=== PATIENT | female | born 2000 | race Hispanic/Latino ===

== ENCOUNTER → 2024-12-01 | Outpatient (CLI) | payer BC ==
[~2024-12-01] VITALS: Ht 165.1 cm; Wt 96.2 kg
[~2024-12-01] MED LIST: FOLI1 PO; NORE0.3548 PO; VIT D PO
[2024-12-01 10:19] LABS: BASOPHILS # (AUTO) 0.03 K/uL (0.00-0.20); BASOPHILS % (AUTO) 0.5 % (0.0-5.0); EOSINOPHILS # (AUTO) 0.12 K/uL (0.00-0.70); EOSINOPHILS % (AUTO) 1.8 % (0.0-8.0); HEMATOCRIT 43.1 % (36-48); IMMATURE GRANULOCYTE ABSOLUTE 0.02 K/uL (0-1); LYMPHOCYTES # (AUTO) 2.3 K/uL (1.0-4.8); LYMPHOCYTES % (AUTO) 36.1 % (21.0-51.0); MEAN CORPUSCULAR HEMOGLOBIN 29.5 pg (27.0-33.0); MEAN CORPUSCULAR HGB CONC 33.6 g/dL (32.0-36.0); MEAN CORPUSCULAR VOLUME 87.8 fL (79-99); MONOCYTES # (AUTO) 0.5 K/uL (0.1-1.0); MONOCYTES % (AUTO) 7.9 % (3.0-13.0); NEUTROPHILS # (AUTO) 3.5 K/uL (1.8-7.7); NEUTROPHILS % (AUTO) 53.4 % (40.0-77.0); PLATELET COUNT (AUTO) 224 K/uL (130-400); RED BLOOD CELL COUNT(AUTO) 4.91 MIL/uL (4.00-5.50); RED CELL DISTRIBUTION WIDTH 11.8 % (11.0-15.5); WHITE BLOOD COUNT (AUTO) 6.5 K/uL (4.8-10.8)
[2024-12-01 10:29] LABS: CREATININE 0.8 mg/dL (0.5-1.0); INR 1.05 (0.85-1.15); POTASSIUM 3.6 mmol/L (3.5-5.1); PROTHROMBIN TIME 11.7 SEC (9.6-11.6)
[2024-12-01 10:30] LABS: PARTIAL THROMBOPLASTIN TIME 29.9 SEC (26.3-35.5)
--- NOTE | 2024-12-01 10:34 | EKG ---
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
[2024-12-01 10:45] VITALS: BP 119/65; PULSE 78; RESP 14; TEMP 98.1
== END ==
LOC: DAH 09:06 → EDSTATUS 11:00
PROVIDERS: ATTEND Surgery
DX: Z01.818 Encounter for other preprocedural examination (principal); F41.9 Anxiety disorder, unspecified; F32.A Depression, unspecified; E78.5 Hyperlipidemia, unspecified; Z79.01 Long term (current) use of anticoagulants; Z98.890 Other specified postprocedural states
CPT/HCPCS: 80048; 84703; 85025; 85610; 85730; 86850; 86900; 86901; 36415; 93005; A6260

== ENCOUNTER 2025-05-26 02:24 | Observation (INO) | payer BC ==
[~2025-05-26] VITALS: Ht 165.1 cm; Wt 75.7 kg
[2025-05-26] VITALS (25 sets, daily range): BP systolic 103–139; BP diastolic 62–85; PULSE 71–107; RESP 15–19; TEMP 97.6–98.6
[2025-05-26] MEDS: LACTATED RINGERS 1000ML 1,000 ML IV SCH (03:06)
--- NOTE | 2025-05-26 03:17 | ERN ---
General Chief Complaint: Abdominal Pain Stated Complaint: C/O LOWER ABD PAIN W/BACK PAIN, N X V Time Seen by MD: 03:11 Source: patient History of Present Illness Initial Comments Patient healthy 25-year-old female a 6 months status post gastric sleeve surgery comes in with excruciating right lower quadrant pain. The pain starts in her right lower quadrant and then migrates a little bit around to her back. No fevers but positive chills. After the pain started patient they started to have nausea and vomiting. She states that she is urinating okay. Timing/Duration: 1-3 hours Severity: severe Allergies: Coded Allergies: No Known Drug Allergies (Unverified Allergy, Unknown, 12/01/24) Home Meds Reported Medications [Vit D] No Conflict Check, 1.25 MG PO WEEKLY 12/01/24 Folic Acid (Folvite) 1 Mg Tab, 1 MG PO DAILY, TAB 12/01/24 Norethindrone (Helen) 0.35 Mg Tablet, 0.35 MG PO DAILY, TAB 12/01/24 Past Medical History Past Medical History: No Pertinent History Past Surgical History: Other Surgical History Other: GASTRIC SLEEVE (01/05) Female( History) LMP: Apr 27, 2025 Constitutional: (+) chills EENTM: (-) eye pain, (-) blurred vision, (-) tearing, (-) double vision, (-) ear pain, (-) ear discharge, (-) nose pain, (-) nose congestion, (-) throat pain, (-) Throat swelling, (-) mouth pain, (-) tooth pain, (-) mouth swelling, (-) other documentation Respiratory: (-) cough, (-) orthopnea, (-) short of breath, (-) stridor, (-) wheezing, (-) other documentation Cardiovascular: (-) chest pain, (-) edema, (-) palpitations, (-) syncope, (-) dyspnea on exertion, (-) other documentation Gastrointestinal/Abdominal: (+) nausea, (+) vomiting, (+) abdominal pain Genitourinary: (-) vaginal discharge, (-) vaginal bleeding, (-) dysuria, (-) frequency, (-) hematuria, (-) pain, (-) other documentation Musculoskeletal: (-) Neck pain, (-) back pain, (-) Flank Pain, (-) joint pain, (-) joint swelling, (-) muscle pain, (-) muscle stiffness, (-) gout, (-) other documentation Skin: (-) laceration, (-) contusion, (-) abrasion, (-) abscess, (-) rash, (-) change in color, (-) change in hair, (-) change in nails, (-) diaphoresis, (-) dryness, (-) other documentation Neuro: (-) altered mental status, (-) headache, (-) syncope, (-) paralysis, (-) numbness, (-) seizure, (-) pre-existing deficit, (-) tremors, (-) weakness, (-) dizziness, (-) slurred speech, (-) vertigo, (-) other documentation Physical Exam General Appearance: (+) moderate distress Orientation: (+) alert, (+) oriented x 3 Head/Face Trauma: No Eye: bilateral eye normal inspection, bilateral eye PERRL, bilateral eye EOMI Ear, Nose, Throat: (+) hearing grossly normal, (+) normal ENT inspection Neck: (+) normal inspection, (+) supple, (+) full range of motion Respiratory: (+) chest non-tender, (+) lungs clear, (+) well ventilated Heart: (+) regular, (+) no gallop, (+) murmur Vascular: (+) no edema, (+) normal peripheral pulse, (+) no JVD Gastrointestinal: (+) soft, (+) tender, (+) bowel sound absent, (+) rebound, (+) guarding, (+) McBerney's Results Laboratory and Microbiology Lab and Micro Result Laboratory Tests Test 05/26/25 02:36 05/26/25 02:57 Urine Color YELLOW (YELLOW) Urine Appearance CLEAR (CLEAR) Urine pH 5.5 (5.0-8.0) Urine Specific [place] 1.041 (1.001-1.031) Urine Protein 20 mg/dL (NEGATIVE) H Urine Glucose (UA) NEGATIVE mg/dL (NEGATIVE) Urine Ketones 100 mg/dL (NEGATIVE) H Urine Occult Blood NEGATIVE (NEGATIVE) Urine Nitrate NEGATIVE (NEGATIVE) Urine Bilirubin NEGATIVE mg/dL (NEGATIVE) Urine Urobilinogen 2.0 mg/dL (0.2-1.0) H Urine Leukocyte Esterase 75 Mason/uL (NEGATIVE) H Urine RBC 2-5 /HPF (0-1) H Urine WBC 2-5 /HPF (0-1) H Urine Squamous Epithelial Cells FEW /HPF (0-2) Urine Bacteria RARE /HPF (None Seen) Urine HCG, Qualitative NEGATIVE (NEGATIVE) White Blood Count 18.1 K/uL (4.8-10.8) H Red Blood Count 4.64 MIL/uL (4.00-5.50) Hemoglobin 13.8 g/dL (12.0-16.0) Hematocrit 40.6 % (36-48) Mean Corpuscular Volume 87.5 fL (79-99) Mean Corpuscular Hemoglobin 29.7 pg (27.0-33.0) Mean Corpuscular Hemoglobin Concent 34.0 g/dL (32.0-36.0) Red Cell Distribution Width 11.8 % (11.0-15.5) Platelet Count 243 K/uL (130-400) Mean Platelet Volume 11.4 fL (7.5-10.5) H Immature Granulocyte % (Auto) 0.4 % (0-1) Neutrophils (%) (Auto) 79.9 % (40.0-77.0) H Lymphocytes (%) (Auto) 15.2 % (21.0-51.0) L Monocytes (%) (Auto) 4.1 % (3.0-13.0) Eosinophils (%) (Auto) 0.2 % (0.0-8.0) Basophils (%) (Auto) 0.2 % (0.0-5.0) Neutrophils # (Auto) 14.5 K/uL (1.8-7.7) H Lymphocytes # (Auto) 2.8 K/uL (1.0-4.8) Monocytes # (Auto) 0.8 K/uL (0.1-1.0) Eosinophils # (Auto) 0.03 K/uL (0.00-0.70) Basophils # (Auto) 0.04 K/uL (0.00-0.20) Absolute Immature Granulocyte (auto 0.07 K/uL (0-1) Nucleated Red Blood Cells 0.0 % (0.0-0.19) Sodium Level 138 mmol/L (136-145) Potassium Level 3.4 mmol/L (3.5-5.1) L Chloride Level 102 mmol/L (101-111) Carbon Dioxide Level 25 mmol/L (21-32) Blood Urea Nitrogen 15 mg/dL (7-18) Creatinine 0.8 mg/dL (0.5-1.0) Glomerular Filtration Rate Calc 104 mL/min (>90) Random Glucose 150 mg/dL (70-105) H Total Calcium 9.2 mg/dL (8.5-10.1) MDM MDM: Differential diagnosis: Appendicitis, nephrolithiasis, small-bowel obstruction, ovarian cyst, intra-abdominal catastrophe, her pain is much more severe than what I would expect for dehydration. Rationale: Tests considered and ordered secondary to shared decision making include: Previous outside records reviewed: Old ER visits. Risk of complication and/or morbidity or mortality of patient management: None Medications-Per medication reconciliation Need for hospitalization: Patient does meet criteria for hospitalization. Need for emergency major/minor surgery: No There are no social concerns with this patient. Prescription drug management Prescriptions will include symptomatic care Patient's prior external medical records from other ER visits were reviewed by me as indicated. Prior testing and results from previous visits were reviewed. Prior tests were taken into account with medical decision making and resource utilization, independent historian/historians were used to obtain complete medical history. I independently interpreted the test that were performed, results were reviewed by me and considered findings on radiology if ordered. CT scans positive for appendicitis. In addition the patient has gastroenteritis and a large right ovarian cyst. I discussed the case with Dr. Wallace and we will admit the patient to the hospital. ED Course Orders Procedure Category Date Status Time Urinalysis Profile LAB 05/26/25 Complete 02:45 ,Urine Test LAB 05/26/25 Complete 02:45 Cbc With Differential LAB 05/26/25 Complete 02:49 Basic Metabolic Panel LAB 05/26/25 Complete 02:49 Ondansetron 4mg Inj PHA 05/26/25 Complete (Zofran 4mg Inj) 03:00 Lactated Ringers PHA 05/26/25 In Process 1000ml (Lactated 03:00 Morphine 2mg Syg PHA 05/26/25 Complete (Morphine 2mg Syg) 03:30 Ct Abdomen/Pelvis CT 05/26/25 Resulted W/Wo Contras 03:12 Culture Urine LIVIA 05/26/25 In Process 03:36 Iohexol (Omnipaque) PHA 05/26/25 Complete 04:07 Morphine 4mg Syg PHA 05/26/25 Complete (Morphine 4mg Syg) 04:30 Lactated Ringers PHA 05/26/25 Complete 1000ml (Lactated 04:41 Current Medications Medications (Trade) Dose Ordered Sig/Davin Route PRN Reason Start Time Stop Time Status Last Admin Dose Admin Iohexol (Omnipaque) 35,000 mg STK-MED ONCE IV 05/26/25 04:07 05/26/25 04:08 DC Lactated Ringer's 1,000 ml @ 0 mls/hr Q0M IV 05/26/25 03:00 06/25/25 02:59 05/26/25 03:06 Lactated Ringer's (Lactated Ringers 1000ml) 1,000 ml BOLUS STAT IV 05/26/25 04:41 05/26/25 04:46 DC 05/26/25 05:11 Morphine Sulfate (morPHINE 2MG SYG) 2 mg ONCE ONCE IVP 05/26/25 03:30 05/26/25 03:31 DC 05/26/25 03:40 Morphine Sulfate (morPHINE 4MG SYG) 4 mg ONCE ONCE IVP 05/26/25 04:30 05/26/25 04:31 DC 05/26/25 05:12 Ondansetron HCl (zoFRAN 4MG INJ) 4 mg ONCE ONCE IVP 05/26/25 03:00 05/26/25 03:01 DC 05/26/25 03:06 Vital Signs Date Time Temp Pulse Resp B/P (MAP) Pulse Ox O2 Delivery O2 Flow Rate FiO2 05/26/25 05:22 98.2 96 18 98/70 99 Room Air* 0 21 05/26/25 03:14 68 18 14/59 98 Room Air* 0 21 05/26/25 02:27 97.2 84 20 98/57 100 Room Air DX & DISP Disposition: Inpatient Departure Impression: Primary Impression: Appendicitis, acute Additional Impressions: Gastroenteritis, Right ovarian cyst Condition: Stable Referrals: NORMAN PHILLIPS NP (PCP) PAN VILLATORO MD May 26, 2025 03:17
[2025-05-26 03:20] LABS: APPEARANCE,URINE CLEAR (CLEAR); GLUCOSE, URINE (UA) NEGATIVE (NEGATIVE); LEUKOCYTE ESTERASE ,URINE 75 Leu/uL (NEGATIVE); NITRATE,URINE NEGATIVE (NEGATIVE); OCCULT BLOOD,URINE NEGATIVE (NEGATIVE)
[2025-05-26 03:25] LABS: CREATININE 0.8 mg/dL (0.5-1.0); GLOMERULAR FILTR. RATE CALC 104.0 mL/min (>90); GLUCOSE,RANDOM 150.0 mg/dL (70-105); SODIUM SERUM 138.0 mmol/L (136-145); UREA NITROGEN, BLOOD 15.0 mg/dL (7-18)
[2025-05-26 03:27] LABS: IMMATURE GRANULOCYTE ABSOLUTE 0.07 K/uL (0-1); NUCLEATED RED BLOOD CELLS 0.0 % (0.0-0.19); PLATELET COUNT (AUTO) 243 K/uL (130-400); RED BLOOD CELL COUNT(AUTO) 4.64 MIL/uL (4.00-5.50); RED CELL DISTRIBUTION WIDTH 11.8 % (11.0-15.5); WHITE BLOOD COUNT (AUTO) 18.1 K/uL (4.8-10.8)
[2025-05-26 03:36] LABS: ADD UA MICROSCOPIC YES
[2025-05-26 03:38] LABS: SQUAMOUS EPITHELIAL CELL,UR FEW /HPF (0-2)
[2025-05-26] MEDS ORDERED: IOHEXOL 350 MG/ML 100ML INFUS..BTL IV ONE (04:07)
--- NOTE | 2025-05-26 04:14 | NUR ---
pATIENT AT CT SCAN AT THIS TIME.
[2025-05-26] MEDS: LACTATED RINGERS 1000ML IV STA (05:11)
--- NOTE | 2025-05-26 05:19 | HMCIMG ---
EXAM: CT Abdomen and Pelvis without and with IV contrast CLINICAL HISTORY: Right lower quadrant abdominal pain. TECHNIQUE: Pre and post-contrast thin collimated axial CT images of the abdomen and pelvis were obtained, with sagittal and coronal reformatted images also submitted. CT scan is done according to ALARA (As Low As Reasonably Achievable). COMPARISON: None. FINDINGS: The included lungs are clear. No focal abnormality within the liver, gallbladder, pancreas, spleen, adrenals, or kidneys. The urinary bladder is suboptimally distended with questionable mild cystitis. There is a 3.5 x 4.0 x 4.0 cm right ovarian cyst with a mildly enhancing wall in its medial aspect. Unremarkable uterus and left ovary. Questionable mild diffuse mucosal thickening in the small and large bowel loops, concerning mild acute enterocolitis. Status post gastric sleeve. Mildly thickened appendix measures up to 1 cm in diameter with mucosal hyperenhancement, concerning mild acute appendicitis. Grossly unremarkable abdominal vessels. No pathological lymphadenopathy in the abdomen or pelvis. No ascites or pneumoperitoneum. No acute bony abnormality is evident. Degenerative osseous changes. IMPRESSIONS: Acute appendicitis. Acute enterocolitis. Right ovarian cyst. The urinary bladder is suboptimally distended with questionable mild cystitis. /[place]
[2025-05-26] MEDS: DEXTROSE 5%-LACTATED RINGERS 1,000 ML IV SCH (05:50)
[2025-05-26] MEDS ORDERED: MAGNESIUM 2GM PREMIX 50ML 50 ML IV PRN (07:30)
[2025-05-26] MEDS ORDERED: PoTASSium chloRIDE 20MEQ ER 20 MEQ ERTAB PO PRN (07:30)
[2025-05-26 08:00] LABS: INR 1.05 (0.85-1.15)
[2025-05-26 08:05] LABS: ASPARTATE AMINOTRANSFERASE 15.0 U/L (10-37); TOTAL PROTEIN, SERUM 6.7 g/dL (6.0-8.3)
[2025-05-26 08:28] LABS: PHOSPHORUS 3.5 mg/dL (2.5-4.9)
--- NOTE | 2025-05-26 09:20 | HP ---
[facility]ORY [facility] PHYS[facility] Date of Service: May 26, 2025 Time of Service: 08:44 HISTORY OF PRESENT ILLNESS: The patient is a 25 year old previously healthy female, 6 months status post gastric sleeve surgery, with past medical history of ADHD came to the ED with chief complaint of excruciating right lower quadrant abdominal pain that began approximately 1-3 hours before presentation to the emergency department and has since radiated slightly towards her back. Pain is aggravated by sudden movement and relieved by lying on bed. She reports associated chills,nausea and 3 episodes of vomiting at home She has no complaints of fever, dysuria, urinary frequency,diarrhea,constipation. Patient had the last bowel movement on saturday. On presentation to the ED,patient vitals are temperature-97.2,pulse-96,respiratory rate-18,b.p-98/70, saturating at 99%on room air. Laboratory evaluation revealed leukocytosis with a wbc count of 18.1, low P- 1.70,high CRP-13.1, low K-3.4. urinalysis revealed mild acute cystitis. Patient is currently on [id number], [id number], dextrose-1000ml@125ml/hr-q8h. Patient received 30ml/kg IVfluid according to sepsis protocol. CT scan of the abdomen and pelvis revealed 1. Acute appendicitis 2.Acute enterocolitis 3.Right simple ovarian cyst-3.5x4x4 4.Mild cystitis Patient admitted for the diagnosis of acute appendicitis.Patient will be monitored closely under hospitalist service. REVIEW OF SYSTEMS CONSTITUTIONAL: Admit to chills, Denies fevers, or night sweats. CARDIOVASCULAR: Denies any exertional angina, dyspnea on exertion. PULMONARY: Denies any shortness of breath, cough. SLEEP: Denies morning headaches, daytime somnolence or napping. Denies difficulty falling asleep, staying asleep, waking from sleep. GASTROINTESTINAL: Admits to lower abdominal pain with back pain Denies any type of dysphagia to either liquids or solids. Patient has nausea, vomiting. Denies pyrosis, early satiety, abdominal pain, diarrhea, constipation, or changes in stool consistency or caliber. Denies coffee-ground emesis, hematemesis, hematochezia, or melanotic stools. GENITOURINARY: Denies frequency, urgency, nocturia, hematuria or incontinence (Storage/Irritative symptoms.) Low urinary stream, straining to void, urinary intermittency or hesitancy, splitting of the voiding stream, terminal dribbling. DERMATOLOGIC: Denies rashes or pruritus. PSYCHIATRIC: Admits of ADHD, Denies any suicidal or homicidal ideation. Denies hallucinations. PAST MEDICAL HISTORY: - Past Medical History is significant for Migraine PAST SURGICAL HISTORY: - Gastric sleeve surgery performed 6 months ago PAST SOCIAL HISTORY: -Denies smoking. Drinks alcohol occasionally, last time she had in the month of february. FAMILY HISTORY: - Denies any pertinent family history Coded Allergies: No Known Drug Allergies (Unverified Allergy, Unknown, 12/01/24) PHYSICAL EXAM GENERAL APPEARANCE: The patient is awake, alert, and oriented, Patient appears to be in moderate distress. HEENT: Face is symmetric. Pupils are equal and reactive. Extraocular movements are intact. NECK: Supple. No JVD. No thyromegaly. No submental, submandibular, pre- /postauricular, occipital or supraclavicular lymphadenopathy. CHEST: Normal chest expansion. No Telemetry. LUNGS: Absence of any rales, rhonchi or any wheezing. CARDIOVASCULAR: Regular. S1 and S2 normal. ABDOMEN: Soft, tender,bowel sounds absent,rebound, guarding and Mcburney point tenderness is present EXTREMITIES: Non-edematous and not cyanotic. No clubbing. Good capillary refill. SKIN: No skin breakdown. Vital Sign (Last 24 Hours) 05/26/25 06:40 Temp 98.4 Pulse 105 Resp 18 B/P (MAP) 105/65 Pulse Ox 98 O2 Delivery Room Air* O2 Flow Rate 0 FiO2 21 LABS: Laboratory: Test 05/26/25 07:40 05/26/25 02:57 05/26/25 02:36 Range/Units Prothrombin Time 11.1 9.6-11.6 SEC Prothromb Time International Ratio 1.05 0.85-1.15 Activated Partial Thromboplast Time 27.1 26.3-35.5 SEC Hemoglobin A1c 5.3 4.0-6.0 % Estimated Average Glucose (eAG) 105 70-126 mg/dL Lactic Acid Level 1.6 0.8-2.5 mmol/L Phosphorus Level 3.5 2.5-4.9 mg/dL Magnesium Level 1.70 L 1.80-2.40 mg/dL Total Bilirubin 0.8 0.2-1.0 mg/dL Direct Bilirubin 0.2 0.0-0.3 mg/dL Aspartate Amino Transf (AST/SGOT) 15 10-37 U/L Alanine Aminotransferase (ALT/SGPT) 29 12-78 U/L Alkaline Phosphatase 51 50-136 U/L C-Reactive Protein, Quantitative 13.10 H 0.5-3.0 mg/L Total Protein 6.7 6.0-8.3 g/dL Albumin 3.5 3.5-5.0 g/dL Lipase 19 16-77 U/L Procalcitonin < 0.05 L 0.05-0.5 ng/mL Thyroid Stimulating Hormone (TSH) 1.07 0.36-3.74 uIU/mL White Blood Count 18.1 H 4.8-10.8 K/uL Red Blood Count 4.64 4.00-5.50 MIL/uL Hemoglobin 13.8 12.0-16.0 g/dL Hematocrit 40.6 36-48 % Mean Corpuscular Volume 87.5 79-99 fL Mean Corpuscular Hemoglobin 29.7 27.0-33.0 pg Mean Corpuscular Hemoglobin Concent 34.0 32.0-36.0 g/dL Red Cell Distribution Width 11.8 11.0-15.5 % Platelet Count 243 130-400 K/uL Mean Platelet Volume 11.4 H 7.5-10.5 fL Immature Granulocyte % (Auto) 0.4 0-1 % Neutrophils (%) (Auto) 79.9 H 40.0-77.0 % Lymphocytes (%) (Auto) 15.2 L 21.0-51.0 % Monocytes (%) (Auto) 4.1 3.0-13.0 % Eosinophils (%) (Auto) 0.2 0.0-8.0 % Basophils (%) (Auto) 0.2 0.0-5.0 % Neutrophils # (Auto) 14.5 H 1.8-7.7 K/uL Lymphocytes # (Auto) 2.8 1.0-4.8 K/uL Monocytes # (Auto) 0.8 0.1-1.0 K/uL Eosinophils # (Auto) 0.03 0.00-0.70 K/uL Basophils # (Auto) 0.04 0.00-0.20 K/uL Absolute Immature Granulocyte (auto 0.07 0-1 K/uL Nucleated Red Blood Cells 0.0 0.0-0.19 % Sodium Level 138 136-145 mmol/L Potassium Level 3.4 L 3.5-5.1 mmol/L Chloride Level 102 101-111 mmol/L Carbon Dioxide Level 25 21-32 mmol/L Blood Urea Nitrogen 15 7-18 mg/dL Creatinine 0.8 0.5-1.0 mg/dL Glomerular Filtration Rate Calc 104 >90 mL/min Random Glucose 150 H 70-105 mg/dL Total Calcium 9.2 8.5-10.1 mg/dL Urine Color YELLOW YELLOW Urine Appearance CLEAR CLEAR Urine pH 5.5 5.0-8.0 Urine Specific [place] 1.041 H 1.001-1.031 Urine Protein 20 H NEGATIVE mg/dL Urine Glucose (UA) NEGATIVE NEGATIVE mg/dL Urine Ketones 100 H NEGATIVE mg/dL Urine Occult Blood NEGATIVE NEGATIVE Urine Nitrate NEGATIVE NEGATIVE Urine Bilirubin NEGATIVE NEGATIVE mg/dL Urine Urobilinogen 2.0 H 0.2-1.0 mg/dL Urine Leukocyte Esterase 75 H NEGATIVE Mason/uL Urine RBC 2-5 H 0-1 /HPF Urine WBC 2-5 H 0-1 /HPF Urine Squamous Epithelial Cells FEW 0-2 /HPF Urine Bacteria RARE None Seen /HPF Urine HCG, Qualitative NEGATIVE NEGATIVE Current Medications Medications (Trade) Dose Ordered Sig/Davin Route PRN Reason Start Time Stop Time Status Last Admin Dose Admin Acetaminophen (TYLenol 325MG TAB) 650 mg Q4H PRN PO TEMPERATURE GREATER THAN 101.5 05/26/25 07:30 06/25/25 07:29 Cefepime HCl (MAXipime 1 GM vial) 1 gm Q12H STAT IVPB 05/26/25 05:32 05/26/25 05:38 DC 05/26/25 05:50 1 GM Ceftriaxone Sodium (ROCEphine 1G INJ) 1 gm Q24H IVPB 05/26/25 07:30 06/05/25 07:29 05/26/25 07:44 1 GM Dextrose/Lactated Ringer's 1,000 ml @ 125 mls/hr Q8H IV 05/26/25 06:00 06/25/25 05:59 05/26/25 05:50 125 MLS/HR Hydromorphone HCl (DiLAUDid 0.5MG INJ) 0.5 mg Q6H PRN IVP SEVERE PAIN (7-10) 05/26/25 07:30 05/31/25 07:29 Lactated Ringer's 1,000 ml @ 0 mls/hr Q0M IV 05/26/25 03:00 06/25/25 02:59 05/26/25 03:06 2,000 MLS/HR Lactated Ringer's (Lactated Ringers 1000ml) 1,000 ml BOLUS STAT IV 05/26/25 04:41 05/26/25 04:46 DC 05/26/25 05:11 1,000 ML Magnesium Sulfate 50 ml @ 0 mls/hr PROTOCOL PRN IV MAGNESIUM PROTOCOL 05/26/25 07:30 06/25/25 07:29 Metronidazole/ Sodium Chloride 100 ml @ 100 mls/hr Q8H6 IVPB 05/26/25 14:00 06/05/25 13:59 Metronidazole/ Sodium Chloride 100 ml @ 100 mls/hr Q8H6 STAT IVPB 05/26/25 05:32 05/26/25 06:32 DC 05/26/25 06:30 100 MLS/HR Morphine Sulfate (morPHINE 2MG SYG) 1 mg Q4H PRN IVP MODERATE PAIN (4-6) 05/26/25 07:30 06/02/25 07:29 Ondansetron HCl (zoFRAN 4MG INJ) 4 mg Q6H PRN IVP NAUSEA/VOMITING 05/26/25 07:30 06/25/25 07:29 Pantoprazole Sodium (PROTonix 40MG INJ) 40 mg DAILY IVP 05/26/25 09:00 06/25/25 08:59 Potassium Chloride 100 ml @ 50 mls/hr AD PRN IV POTASSIUM PROTOCOL 05/26/25 07:30 06/25/25 07:29 Potassium Chloride 100 ml @ 100 mls/hr AD PRN IV POTASSIUM PROTOCOL 05/26/25 07:30 05/26/25 07:15 DC Potassium Chloride (K-Dur/Klor-Con 20meq) 20 meq AD PRN PO POTASSIUM PROTOCOL 05/26/25 07:30 06/25/25 07:29 Potassium Chloride (KCl 10% Elixir 20meq/15ml) 20 meq AD PRN PO POTASSIUM PROTOCOL 05/26/25 07:30 06/25/25 07:29 DIAGNOSTICS / RADIOLOGY: [facility] [place] [address] [place] [address] IMAGING REPORT Signed PATIENT: SHUN LARA MR#: [id number] : 2000 SEX: F AGE: 25 LOCATION: [facility] ORDER 3 STATUS: REG ER REPORT#: [id number] SERVICE 1 REASON: RLQ pain ORDERING PHYSICIAN: PAN VILLATORO MD PROCEDURE: ABD PELWWO - CT ABDOMEN/PELVIS W/WO CONTRAS EXAM: CT Abdomen and Pelvis without and with IV contrast CLINICAL HISTORY: Right lower quadrant abdominal pain. TECHNIQUE: Pre and post-contrast thin collimated axial CT images of the abdomen and pelvis were obtained, with sagittal and coronal reformatted images also submitted. CT scan is done according to ALARA (As Low As Reasonably Achievable). COMPARISON: None. FINDINGS: The included lungs are clear. No focal abnormality within the liver, gallbladder, pancreas, spleen, adrenals, or kidneys. The urinary bladder is suboptimally distended with questionable mild cystitis. There is a 3.5 x 4.0 x 4.0 cm right ovarian cyst with a mildly enhancing wall in its medial aspect. Unremarkable uterus and left ovary. Questionable mild diffuse mucosal thickening in the small and large bowel loops, concerning mild acute enterocolitis. Status post gastric sleeve. Mildly thickened appendix measures up to 1 cm in diameter with mucosal hyperenhancement, concerning mild acute appendicitis. Grossly unremarkable abdominal vessels. No pathological lymphadenopathy in the abdomen or pelvis. No ascites or pneumoperitoneum. No acute bony abnormality is evident. Degenerative osseous changes. IMPRESSIONS: Acute appendicitis. Acute enterocolitis. Right ovarian cyst. The urinary bladder is suboptimally distended with questionable mild cystitis. /[place] DICTATED BY: DERICK LEES Jr., MD DATE: 05/26/25618 ELECTRONICALLY SIGNED BY: DERICK LEES Jr., MD DATE: 05/26/25 0619 ASSESSMENT: 1. Acute Appendicitis 2. Enterocolitis 3. Acute mild Cystitis 4.Right Simple Ovarian Cyst- Measuring 3.5 x4.0 x4.0 cm ovarian cyst 5. Sepsis 6. Possible SBO PLAN: 1. Acute Appendicitis -Monitoring the patient vitals closely. - provided pain medications and antiemetics as PRN- Ondansetron 4mg and morphine 4mg - patient is on NPO. -Surgical consultation placed 2.Enterocolitis: - Fluid resuscitation with lactate ringers - Necessary electrolyte correction -Bowel rest - Stool studies to suspect infectious cause -Started empiric antibiotics like metronidazole-100ml -Acetaminophen for fever and pain. 3.Acute mild cystitis: -ceftriaxone-1gm IV daily -Adjust antibiotics as per urine culture/sensitivity results 4.Right simple ovarian cyst: -Here the cyst is<5cm and asymptomatic- Follow up care is required. 5.Sepsis: - Dextrose/lactated ringers-1000ml@125ml/hr -Prescribed broad spectrum antibiotics ceftriaxone 1mg 6. Possible Small Bowel Obstruction: -NPO -Ondansetron 4mg for vomiting -Morphine 3 mg for pain control ATTESTATION BY PHYSICIAN I have seen and examined the patient. I reviewed the documentation, medical decision making, and treatment plan as noted by the mid-level provider above. I agree with the findings and plan of care. Akhil Mccormack MD, HARSHA MD May 26, 2025 09:20
--- NOTE | 2025-05-26 09:42 | NUR ---
DCP:HOME Pt currently lives at home with her mom Noris Loya [phone]. Pt does not have any DME, home health, or provider services. Pt states that she is able to complete ADLs independently. PCP is Susy Haley and uses [facility] for any RX needs. At DC pt will want to go home and family can assist with transportation. Addendum: 05/26/25 at 0944 by LUIS ENRIQUE LILLY SS Amended: Links added.
[2025-05-26] MEDS ORDERED: ATOM10CA PO (10:01)
--- NOTE | 2025-05-26 10:47 | CONS ---
CONSULT NOTE: Consulting physician:Dr Mccormack Consulting service: General surgery Reason for consultation: Acute appendicitis History of present illness: This is a 25-year-old female with no significant medical history that has been consulted to surgery after presenting to the hospital with concerns of abdominal discomfort. Initially patient thought it was potentially menstrual cramps but due to worsening symptoms patient presented to the hospital for further evaluation. Upon admission imaging performed concerning for potential appendicitis with in her colitis and right ovarian cyst measuring 4 x 4 x 3.5 cm . Patient also with concerns of cystitis noted. Patient with a elevated white count. Patient currently on IV fluids and IV antibiotics. On physical exam patient with rebound tenderness and right lower quadrant discomfort. Patient currently NPO in preparation for possible surgery Medical history: Surgical history: Gastric sleeve in December of 2024 Review of systems: General: No Fever, No Chills, No Night Sweats, No Fatigue, No Malaise, No Appetite, No Other HEENT: No Head Aches, No Visual Changes, No Eye Pain, No Ear Pain, No Dysphasia, No Sinus Congestion, No Post Nasal Drip, No Sore Throat, No Other Pulmonary: No Dyspnea, No Cough, No Pleuritic Chest Pain, No Other Cardiovascular: No: Chest Pain, Palpitations, Orthopnea, Paroxysmal No Dyspnea, Edema, Lt Headedness, Other Gastrointestinal: No: Nausea, Vomiting, Diarrhea, Constipation, Melena, Hematochezia, Other Genitourinary: No Dysuria, No Frequency, No Incontinence, No Hematuria, No Retention, No Other Musculoskeletal: No: other, neck pain, shoulder pain, arm pain, back pain, hand pain, leg pain, foot pain Skin: No Urticaria, No Rash, No Other Neurological: No: Weakness, Numbness, Incoordination, Change in speech, Confusion, Seizures, Other Physical exam: General: Awake alert and oriented Heart: Regular rate and rhythm} Lungs: [Clear to auscultation no distress Abdomen: Right lower quadrant tenderness with rebound tenderness Assessment: This is a 25-year-old female with concerns acute appendicitis with a ovarian cysts and mild in her colitis and cystitis Plan: At this point in time patient will be scheduled for appendectomy to be performed by Dr. Lanier Patient to remain NPO Patient to continue with the IV fluids and IV antibiotics Patient has a forward with surgical procedure risks and benefits and agrees with surgical intervention at this time Dr. Lanier has been updated on patient's status SERGIO LANDAVERDE Jr. May 26, 2025 10:47
[2025-05-26] MEDS ORDERED: LIDOCAINE PF 100MG/5ML (2%) SYRINGE 5ML ONE (11:31)
[2025-05-26] MEDS: LACTATED RINGERS 1000ML 1,000 ML IV ONE (11:46)
--- NOTE | 2025-05-26 13:53 | OP ---
Operative Note: DATE OF PROCEDURE: 05/26/25 SURGEON: LUIS BLACKMON MD MANAGER MINING: [] ANESTHESIA: [] General ANESTHESIOLOGIST/DATABASE MODELER: [] PREOPERATIVE DIAGNOSIS: [] Acute appendicitis POSTOPERATIVE DIAGNOSIS: [] The same SYNOPSIS: [] PROCEDURE: [] Laparoscopic appendectomy ESTIMATED BLOOD LOSS: [] None INDICATIONS: [] DESCRIPTION OF PROCEDURE: []With the patient prepped and draped in usual fashion supraumbilical incision was done. Using direct technique I was able to place a balloon trocar and abdomen insufflated. Two 5 mm trochars were inserted under direct vision in the lower abdomen. Immediately we identified an inflamed appendix and a window was created in the base and the appendix. Using a laparoscopic 45 mm DENIS white stapler I transected the base of appendix. I used a reload to transect the mesoappendix. The appendix was placed in a bag. After adequate hemostasis and irrigation in the area I remove all the trochars under direct vision and the appendix through the supraumbilical incision. The fascia was closed with the 0 Vicryl [id number]. All incisions were closed with staplers. I placed 20 cc of local. We noticed a right ovarian cysts and pictures were taken. Patient tolerated procedure without complication LUIS BLACKMON MD May 26, 2025 13:53
--- NOTE | 2025-05-26 15:30 | NUR ---
Received patient placed in room 324 ,patient sleeping , abdominal incisions intact.intravenous fluids via pump via pump.
--- NOTE | 2025-05-26 19:39 | HMCIMG ---
EXAM: CR Chest, 1 View. CLINICAL HISTORY: Baseline COMPARISON: None provided. FINDINGS: LUNGS: The lungs show no infiltrate or other acute finding. PLEURAL SPACES: No pleural effusion or pneumothorax. MEDIASTINUM: The cardiomediastinal silhouette is within normal limits. BONES: No acute osseous abnormality. IMPRESSION: No acute cardiopulmonary pathology is evident. /[place]
[2025-05-26] MEDS: SUGAMMADEX SODIUM 200 MG/2 ML VIAL IV ONE (21:46)
[2025-05-26] MEDS: GABAPENTIN 300 MG CAPSULE ONE (21:52)
[2025-05-26] MEDS: FAMOTIDINE 20MG VIAL IV ONE (21:52)
[2025-05-27] VITALS (7 sets, daily range): BP systolic 95–113; BP diastolic 53–71; PULSE 75–86; RESP 16–20; TEMP 97.8–98.6; O2SAT 100
[2025-05-27 06:17] LABS: IMMATURE GRANULOCYTE ABSOLUTE 0.08 K/uL (0-1); NUCLEATED RED BLOOD CELLS 0.0 % (0.0-0.19); PLATELET COUNT (AUTO) 219 K/uL (130-400); RED BLOOD CELL COUNT(AUTO) 4.12 MIL/uL (4.00-5.50); RED CELL DISTRIBUTION WIDTH 11.8 % (11.0-15.5); WHITE BLOOD COUNT (AUTO) 12.4 K/uL (4.8-10.8)
[2025-05-27 07:29] LABS: CREATININE 0.6 mg/dL (0.5-1.0); GLOMERULAR FILTR. RATE CALC 127.0 mL/min (>90); GLUCOSE,RANDOM 113.0 mg/dL (70-105); SODIUM SERUM 141.0 mmol/L (136-145); UREA NITROGEN, BLOOD 8.0 mg/dL (7-18)
[2025-05-27] MEDS: MAGNESIUM 2GM PREMIX 50ML 50 ML IV PRN (15:35)
--- NOTE | 2025-05-27 16:55 | PN ---
[facility] PROGRESS NOTE Date of Service: May 27, 2025 Time of Service: 16:47 SUBJECTIVE: This is a 25-year-old female with no significant medical history that has been consulted to surgery after presenting to the hospital with concerns of abdominal discomfort. Initially patient thought it was potentially menstrual cramps but due to worsening symptoms patient presented to the hospital for further evaluation. Upon admission imaging performed concerning for potential appendicitis with in her colitis and right ovarian cyst measuring 4 x 4 x 3.5 cm. Patient also with concerns of cystitis noted. Patient with a elevated white count. Patient currently on IV fluids and IV antibiotics. On physical exam patient with rebound tenderness and right lower quadrant discomfort. Patient currently NPO in preparation for possible surgery 05/27/2025: Patient underwent appendectomy yesterday on 05/26/2025. Patient was seen at bedside in room 324. Patient states that she has been doing well since her surgery. Patient is alert, awake, and oriented. Her vitals look stable. Patient states that she went for a run in the morning and has not felt any significant pain. She states that she still has some pain from the access site. She has no other active complaints. She is waiting for recommendations from colorectal surgery regarding her possible discharge date. REVIEW OF SYSTEMS CONSTITUTIONAL: Admit to chills, Denies fevers, or night sweats. CARDIOVASCULAR: Denies any exertional angina, dyspnea on exertion. PULMONARY: Denies any shortness of breath, cough. SLEEP: Denies morning headaches, daytime somnolence or napping. Denies difficulty falling asleep, staying asleep, waking from sleep. GASTROINTESTINAL: Admits to lower abdominal pain with back pain Denies any type of dysphagia to either liquids or solids. Patient has nausea, vomiting. Denies pyrosis, early satiety, abdominal pain, diarrhea, constipation, or changes in stool consistency or caliber. Denies coffee-ground emesis, hematemesis, hematochezia, or melanotic stools. GENITOURINARY: Denies frequency, urgency, nocturia, hematuria or incontinence (Storage/Irritative symptoms.) Low urinary stream, straining to void, urinary intermittency or hesitancy, splitting of the voiding stream, terminal dribbling. DERMATOLOGIC: Denies rashes or pruritus. PSYCHIATRIC: Admits of ADHD, Denies any suicidal or homicidal ideation. Denies hallucinations. PHYSICAL EXAM GENERAL APPEARANCE: The patient is awake, alert, and oriented, Patient appears to be in moderate distress. HEENT: Face is symmetric. Pupils are equal and reactive. Extraocular movements are intact. NECK: Supple. No JVD. No thyromegaly. No submental, submandibular, pre-/posta uricular, occipital or supraclavicular lymphadenopathy. CHEST: Normal chest expansion. No Telemetry. LUNGS: Absence of any rales, rhonchi or any wheezing. CARDIOVASCULAR: Regular. S1 and S2 normal. ABDOMEN: Soft, tender,bowel sounds absent,rebound, guarding and Mcburney point tenderness is present EXTREMITIES: Non-edematous and not cyanotic. No clubbing. Good capillary refill. SKIN: No skin breakdown. Vital Signs (last 8hr) Date Time Temp Pulse Resp B/P (MAP) Pulse Ox O2 Delivery O2 Flow Rate FiO2 05/27/25 12:00 98.2 86 18 113/62 96 Room Air LABS: Laboratory: Test 05/27/25 14:53 05/27/25 06:05 05/26/25 09:22 05/26/25 07:40 Range/Units Magnesium Level 1.90 1.80-2.40 mg/dL White Blood Count 12.4 H 4.8-10.8 K/uL Red Blood Count 4.12 4.00-5.50 MIL/uL Hemoglobin 12.3 12.0-16.0 g/dL Hematocrit 35.9 L 36-48 % Mean Corpuscular Volume 87.1 79-99 fL Mean Corpuscular Hemoglobin 29.9 27.0-33.0 pg Mean Corpuscular Hemoglobin Concent 34.3 32.0-36.0 g/dL Red Cell Distribution Width 11.8 11.0-15.5 % Platelet Count 219 130-400 K/uL Mean Platelet Volume 10.8 H 7.5-10.5 fL Immature Granulocyte % (Auto) 0.6 0-1 % Neutrophils (%) (Auto) 82.3 H 40.0-77.0 % Lymphocytes (%) (Auto) 11.5 L 21.0-51.0 % Monocytes (%) (Auto) 5.5 3.0-13.0 % Eosinophils (%) (Auto) 0.0 0.0-8.0 % Basophils (%) (Auto) 0.1 0.0-5.0 % Neutrophils # (Auto) 10.2 H 1.8-7.7 K/uL Lymphocytes # (Auto) 1.4 1.0-4.8 K/uL Monocytes # (Auto) 0.7 0.1-1.0 K/uL Eosinophils # (Auto) 0.00 0.00-0.70 K/uL Basophils # (Auto) 0.01 0.00-0.20 K/uL Absolute Immature Granulocyte (auto 0.08 0-1 K/uL Nucleated Red Blood Cells 0.0 0.0-0.19 % Sodium Level 141 136-145 mmol/L Potassium Level 3.9 3.5-5.1 mmol/L Chloride Level 106 101-111 mmol/L Carbon Dioxide Level 27 21-32 mmol/L Blood Urea Nitrogen 8 7-18 mg/dL Creatinine 0.6 0.5-1.0 mg/dL Glomerular Filtration Rate Calc 127 >90 mL/min Random Glucose 113 H 70-105 mg/dL Total Calcium 9.1 8.5-10.1 mg/dL Whole Blood Ketones Quantitative 0.3 0.0-0.6 mmol/L Erythrocyte Sedimentation Rate 20 0-20 MM/HR Prothrombin Time 11.1 9.6-11.6 SEC Prothromb Time International Ratio 1.05 0.85-1.15 Activated Partial Thromboplast Time 27.1 26.3-35.5 SEC Hemoglobin A1c 5.3 4.0-6.0 % Estimated Average Glucose (eAG) 105 70-126 mg/dL Lactic Acid Level 1.6 0.8-2.5 mmol/L Phosphorus Level 3.5 2.5-4.9 mg/dL Total Bilirubin 0.8 0.2-1.0 mg/dL Direct Bilirubin 0.2 0.0-0.3 mg/dL Aspartate Amino Transf (AST/SGOT) 15 10-37 U/L Alanine Aminotransferase (ALT/SGPT) 29 12-78 U/L Alkaline Phosphatase 51 50-136 U/L C-Reactive Protein, Quantitative 13.10 H 0.5-3.0 mg/L Total Protein 6.7 6.0-8.3 g/dL Albumin 3.5 3.5-5.0 g/dL Lipase 19 16-77 U/L Procalcitonin < 0.05 L 0.05-0.5 ng/mL Thyroid Stimulating Hormone (TSH) 1.07 0.36-3.74 uIU/mL Test 05/26/25 02:36 Range/Units Urine Color YELLOW YELLOW Urine Appearance CLEAR CLEAR Urine pH 5.5 5.0-8.0 Urine Specific [place] 1.041 H 1.001-1.031 Urine Protein 20 H NEGATIVE mg/dL Urine Glucose (UA) NEGATIVE NEGATIVE mg/dL Urine Ketones 100 H NEGATIVE mg/dL Urine Occult Blood NEGATIVE NEGATIVE Urine Nitrate NEGATIVE NEGATIVE Urine Bilirubin NEGATIVE NEGATIVE mg/dL Urine Urobilinogen 2.0 H 0.2-1.0 mg/dL Urine Leukocyte Esterase 75 H NEGATIVE [place]/uL Urine RBC 2-5 H 0-1 /HPF Urine WBC 2-5 H 0-1 /HPF Urine Squamous Epithelial Cells FEW 0-2 /HPF Urine Bacteria RARE None Seen /HPF Urine HCG, Qualitative NEGATIVE NEGATIVE Current Medications Medications (Trade) Dose Ordered Sig/Davin Route PRN Reason Start Time Stop Time Status Last Admin Dose Admin Acetaminophen (TYLenol 325MG TAB) 650 mg Q4H PRN PO TEMPERATURE GREATER THAN 101.5 05/26/25 07:30 06/25/25 07:29 Cefepime HCl (MAXipime 1 GM vial) 1 gm Q12H STAT IVPB 05/26/25 05:32 05/26/25 05:38 DC 05/26/25 05:50 1 GM Ceftriaxone Sodium (ROCEphine 1G INJ) 1 gm Q24H IVPB 05/26/25 07:30 06/05/25 07:29 05/27/25 06:41 1 GM Dextrose/Lactated Ringer's 1,000 ml @ 125 mls/hr Q8H IV 05/26/25 06:00 06/25/25 05:59 05/27/25 06:41 125 MLS/HR Hydromorphone HCl (DiLAUDid 0.5MG INJ) 0.5 mg Q6H PRN IVP SEVERE PAIN (7-10) 05/26/25 07:30 05/26/25 09:10 DC Lactated Ringer's 1,000 ml @ 0 mls/hr Q0M IV 05/26/25 03:00 06/25/25 02:59 05/26/25 03:06 2,000 MLS/HR Lactated Ringer's (Lactated Ringers 1000ml) 1,000 ml BOLUS STAT IV 05/26/25 04:41 05/26/25 04:46 DC 05/26/25 05:11 1,000 ML Magnesium Sulfate 50 ml @ 0 mls/hr PROTOCOL PRN IV MAGNESIUM PROTOCOL 05/26/25 07:30 05/27/25 09:03 DC Magnesium Sulfate 50 ml @ 0 mls/hr PROTOCOL PRN IV MAGNESIUM PROTOCOL 05/27/25 09:00 06/26/25 08:59 05/27/25 15:35 25 MLS/HR Metronidazole/ Sodium Chloride 100 ml @ 100 mls/hr Q8H6 IVPB 05/26/25 14:00 06/05/25 13:59 05/27/25 14:11 100 MLS/HR Metronidazole/ Sodium Chloride 100 ml @ 100 mls/hr Q8H6 STAT IVPB 05/26/25 05:32 05/26/25 06:32 DC 05/26/25 06:30 100 MLS/HR Morphine Sulfate (morPHINE 2MG SYG) 1 mg Q4H PRN IVP MODERATE PAIN (4-6) 05/26/25 07:30 05/26/25 09:10 DC Morphine Sulfate (morPHINE 2MG SYG) 1 mg Q4H PRN IVP MODERATE PAIN (4-6) 05/26/25 08:30 06/02/25 08:29 Morphine Sulfate (morPHINE 4MG SYG) 3 mg Q4H PRN IVP SEVERE PAIN (7-10) 05/26/25 11:30 06/02/25 11:29 Ondansetron HCl (zoFRAN 4MG INJ) 4 mg Q6H PRN IVP NAUSEA/VOMITING 05/26/25 07:30 06/25/25 07:29 Pantoprazole Sodium (PROTonix 40MG INJ) 40 mg DAILY IVP 05/26/25 09:00 06/25/25 08:59 05/27/25 08:21 40 MG Potassium Chloride 100 ml @ 50 mls/hr AD PRN IV POTASSIUM PROTOCOL 05/26/25 07:30 06/25/25 07:29 Potassium Chloride 100 ml @ 100 mls/hr AD PRN IV POTASSIUM PROTOCOL 05/26/25 07:30 05/26/25 07:15 DC Potassium Chloride (K-Dur/Klor-Con 20meq) 20 meq AD PRN PO POTASSIUM PROTOCOL 05/26/25 07:30 06/25/25 07:29 Potassium Chloride (KCl 10% Elixir 20meq/15ml) 20 meq AD PRN PO POTASSIUM PROTOCOL 05/26/25 07:30 06/25/25 07:29 DIAGNOSTICS / RADIOLOGY: [facility] [address] [place] [address] IMAGING REPORT Addendum PATIENT: SHUN LARA MR#: [id number] : 2000 SEX: F AGE: 25 LOCATION: [facility] ORDER 3 STATUS: REG REPORT#: [id number] SERVICE 1 REASON: RLQ pain ORDERING PHYSICIAN: JAIME VILLATORO MD PROCEDURE: ABD PELWWO - CT ABDOMEN/PELVIS W/WO CONTRAS ADDENDUM REPORT ADDENDUM: Results were shared by telephone at 6:23 am on 05-26-25 and acknowledged by Jaime Olivas. /[place] EXAM: CT Abdomen and Pelvis without and with IV contrast CLINICAL HISTORY: Right lower quadrant abdominal pain. TECHNIQUE: Pre and post-contrast thin collimated axial CT images of the abdomen and pelvis were obtained, with sagittal and coronal reformatted images also submitted. CT scan is done according to ALARA (As Low As Reasonably Achievable). COMPARISON: None. FINDINGS: The included lungs are clear. No focal abnormality within the liver, gallbladder, pancreas, spleen, adrenals, or kidneys. The urinary bladder is suboptimally distended with questionable mild cystitis. There is a 3.5 x 4.0 x 4.0 cm right ovarian cyst with a mildly enhancing wall in its medial aspect. Unremarkable uterus and left ovary. Questionable mild diffuse mucosal thickening in the small and large bowel loops, concerning mild acute enterocolitis. Status post gastric sleeve. Mildly thickened appendix measures up to 1 cm in diameter with mucosal hyperenhancement, concerning mild acute appendicitis. Grossly unremarkable abdominal vessels. No pathological lymphadenopathy in the abdomen or pelvis. No ascites or pneumoperitoneum. No acute bony abnormality is evident. Degenerative osseous changes. IMPRESSIONS: Acute appendicitis. Acute enterocolitis. Right ovarian cyst. The urinary bladder is suboptimally distended with questionable mild cystitis. /[place] DICTATED BY: DERICK LEES Jr., MD DATE: 05/26/25625 ELECTRONICALLY SIGNED BY: DATE: EXAM: CT Abdomen and Pelvis without and with IV contrast CLINICAL HISTORY: Right lower quadrant abdominal pain. TECHNIQUE: Pre and post-contrast thin collimated axial CT images of the abdomen and pelvis were obtained, with sagittal and coronal reformatted images also submitted. CT scan is done according to ALARA (As Low As Reasonably Achievable). COMPARISON: None. FINDINGS: The included lungs are clear. No focal abnormality within the liver, gallbladder, pancreas, spleen, adrenals, or kidneys. The urinary bladder is suboptimally distended with questionable mild cystitis. There is a 3.5 x 4.0 x 4.0 cm right ovarian cyst with a mildly enhancing wall in its medial aspect. Unremarkable uterus and left ovary. Questionable mild diffuse mucosal thickening in the small and large bowel loops, concerning mild acute enterocolitis. Status post gastric sleeve. Mildly thickened appendix measures up to 1 cm in diameter with mucosal hyperenhancement, concerning mild acute appendicitis. Grossly unremarkable abdominal vessels. No pathological lymphadenopathy in the abdomen or pelvis. No ascites or pneumoperitoneum. No acute bony abnormality is evident. Degenerative osseous changes. IMPRESSIONS: Acute appendicitis. Acute enterocolitis. Right ovarian cyst. The urinary bladder is suboptimally distended with questionable mild cystitis. /[place] DICTATED BY: DERICK LEES Jr., MD DATE: 05/26/25618 ELECTRONICALLY SIGNED BY: DERICK LEES Jr., MD DATE: 05/26/256[address] [place] [address] IMAGING REPORT Signed PATIENT: SHUN LARA MR#: [id number] : 2000 SEX: F AGE: 25 LOCATION: [facility] ORDER 3 STATUS: ADM IN REPORT#: [id number] SERVICE [id number] REASON: Baseline ORDERING PHYSICIAN: DG MAGAÑA MD PROCEDURE: CXR1VW - CHEST 1VW EXAM: CR Chest, 1 View. CLINICAL HISTORY: Baseline COMPARISON: None provided. FINDINGS: LUNGS: The lungs show no infiltrate or other acute finding. PLEURAL SPACES: No pleural effusion or pneumothorax. MEDIASTINUM: The cardiomediastinal silhouette is within normal limits. BONES: No acute osseous abnormality. IMPRESSION: No acute cardiopulmonary pathology is evident. /[place] DICTATED BY: DERICK LEES Jr., MD DATE: 05/26/252037 ELECTRONICALLY SIGNED BY: DERICK LEES Jr., MD DATE: 05/26/252037 OPERATIVE REPORT Name: SHUN LARA Acct: [id number] MR: [id number] : 2000 Admit Date: 05/26/25 [place] [id number] Operative Note: DATE OF PROCEDURE: 05/26/25 SURGEON: LUIS BLACKMON MD SR ACCOUNT EXECUTIVE: [] ANESTHESIA: [] General ANESTHESIOLOGIST/SHAFT SINKER: [] PREOPERATIVE DIAGNOSIS: [] Acute appendicitis POSTOPERATIVE DIAGNOSIS: [] The same SYNOPSIS: [] PROCEDURE: [] Laparoscopic appendectomy ESTIMATED BLOOD LOSS: [] None INDICATIONS: [] DESCRIPTION OF PROCEDURE: []With the patient prepped and draped in usual fashion supraumbilical incision was done. Using direct technique I was able to place a balloon trocar and abdomen insufflated. Two 5 mm trochars were inserted under direct vision in the lower abdomen. Immediately we identified an inflamed appendix and a window was created in the base and the appendix. Using a laparoscopic 45 mm DENIS white stapler I transected the base of appendix. I used a reload to transect the mesoappendix. The appendix was placed in a bag. After adequate hemostasis and irrigation in the area I remove all the trochars under direct vision and the appendix through the supraumbilical incision. The fascia was closed with the 0 Vicryl [id number]'s. All incisions were closed with staplers. I placed 20 cc of local. We noticed a right ovarian cysts and pictures were taken. Patient tolerated procedure without complication LUIS BLACKMON MD May 26, 2025 13:53 Electronically Signed by: LUIS BLACKMON MD05/26/25 1353 Electronically Co-Signed by: ASSESSMENT: 1. Acute Appendicitis s/p appendectomy 05/26/2025 2. Enterocolitis 3. Acute mild Cystitis 4.Right Simple Ovarian Cyst- Measuring 3.5 x4.0 x4.0 cm ovarian cyst 5. Sepsis 6. Possible SBO PLAN: 1. Acute Appendicitis s/p appendectomy on 05/26/2025 -Patient had her appendectomy done on 05/26/2025 -Monitoring the patient vitals closely. -patient's WBC count trended down from 18.1 On 05/26/2025 to 12.4 Today . - provided pain medications and antiemetics as PRN- Ondansetron 4mg and morphine 4mg -patient is on full liquid diet. 2.Enterocolitis: - Fluid resuscitation with lactate ringers - Necessary electrolyte correction -patient is on full liquid diet today. - Stool studies to suspect infectious cause -Started empiric antibiotics like metronidazole-100ml (Day 1) -Acetaminophen for fever and pain. 3.Acute mild cystitis: -ceftriaxone-1gm IV daily (day 1) -preliminary urine culture revealed [id number] colony-forming units. -Adjust antibiotics as per urine culture/sensitivity results 4.Right simple ovarian cyst: -Here the cyst is<5cm and asymptomatic- Follow up care is required. 5.Sepsis: - Dextrose/lactated ringers-1000ml@125ml/hr -Prescribed broad spectrum antibiotics ceftriaxone 1mg 6. Possible Small Bowel Obstruction: -NPO -Ondansetron 4mg for vomiting -Morphine 3 mg for pain control ATTESTATION BY PHYSICIAN I have seen and examined the patient. I reviewed the documentation, medical decision making, and treatment plan as noted by the resident provider above. I agree with the findings and plan of care. Akhil Mccormack MD, HEMA MD May 27, 2025 16:55
--- NOTE | 2025-05-27 21:25 | NUR ---
MEDS SHIFT ASSESSMENT DONE, PLEASE REFER TO CHART. STILL NO BM BUT PASSING GAS. DUE MEDS ADMINISTERED, TOLERATED WELL. KEPT RESTED AND COMFORTABLE IN BED. CALL LIGHT WITHIN REACH.
[2025-05-28 00:02] VITALS: BP 99/56; PULSE 76; RESP 20; TEMP 98.4
[2025-05-28 04:36] VITALS: BP 103/64; PULSE 66; RESP 20; TEMP 98.2
--- NOTE | 2025-05-28 05:07 | NUR ---
MEDS PT SLEPT AT INTERVALS DURING THE SHIFT. NO DISTRESS NOTED. KEPT RESTED AND COMFORTABLE. DUE MEDS ADMINISTERED. CALL LIGHT WITHIN REACH. FOR MORE CARE.
[2025-05-28 06:33] LABS: IMMATURE GRANULOCYTE ABSOLUTE 0.02 K/uL (0-1); NUCLEATED RED BLOOD CELLS 0.0 % (0.0-0.19); PLATELET COUNT (AUTO) 184 K/uL (130-400); RED BLOOD CELL COUNT(AUTO) 3.60 MIL/uL (4.00-5.50); RED CELL DISTRIBUTION WIDTH 12.0 % (11.0-15.5); WHITE BLOOD COUNT (AUTO) 7.8 K/uL (4.8-10.8)
[2025-05-28 06:49] LABS: CREATININE 0.7 mg/dL (0.5-1.0); GLOMERULAR FILTR. RATE CALC 122.0 mL/min (>90); GLUCOSE,RANDOM 84.0 mg/dL (70-105); SODIUM SERUM 142.0 mmol/L (136-145); UREA NITROGEN, BLOOD 9.0 mg/dL (7-18)
--- NOTE | 2025-05-28 07:26 | EKG ---
[facility] Test Date: 2025-05-28 Test Time: 07:20:42 Pat Name: SHUN LARA Department: [facility] Room: 324 1 Gender: F Cable Layer: thien : 2000 Requested By: DG MAGAÑA Order Number: [id number] Reading MD: Roemo Zhou Measurements Intervals [place] Rate: 71 P: 8 UT: 162 QRS: 15 QRSD: 80 T: 13 QT: 386 QTc: 419 Interpretive Statements Normal sinus rhythm with sinus arrhythmia Compared to ECG 05/28/2025 07:20:13 No significant changes Electronically Signed On 05-28-2025 16:05:50 CDT by Romeo Zhou Please click the below link to view image of tracing.
[2025-05-28 08:08] LABS: % IRON SATURATION 44.0 % (22-44); IRON, SERUM 96.0 mcg/dL (50-170)
[2025-05-28 08:09] VITALS: BP 106/70; PULSE 72; RESP 19; TEMP 98.3
[2025-05-28] MEDS: PoTASSium chl 10% ELIXIR 20MEQ 20 MEQ/15 ML UDCUP PO PRN (08:51)
[2025-05-28 11:33] VITALS: BP 98/66; PULSE 64; RESP 19; TEMP 98.6
--- NOTE | 2025-05-28 15:14 | DS ---
Discharge Summary Hospital Course Summary: Patient is a 25-year-old female with a past medical history of anxiety, ADHD, and status post gastric sleeve surgery presented to the emergency department with the chief complaint of excruciating right lower quadrant abdominal pain that began approximately 1-3 hours before presentation to the emergency depar tme and has since radiated slightly towards the back. Patient stated that the pain is aggravated by sudden movement and relieved by lying on bed. She reported associated chills, nausea and 3 episodes of vomiting at home. Patient had no complaints of fever, dysuria, urinary frequency, diarrhea, constipation. On presentation to the ED the patient's vitals were a temperature of 97.2, pulse of 96, respiratory rate of 18, blood pressure of 98/70, saturating at 99% on room air. Abdominal CT scan showed acute appendicitis, acute enterocolitis, and right ovarian cyst. Laboratory results were remarkable for a WBC count of 18.1 With a neutrophilic shift at 79.9% relative neutrophil count. Patient was admitted to the hospital and general surgery was consulted. General surgery recommended the patient undergo appendectomy which was performed on 05/26/2025. The patient was then transferred to the floors were the hospitalist service was consulted on medical management. Patient's hospital course was unremarkable with a normal postoperative course. Patient's WBC count came down from 18.1 To 7.8 On 05/28/2025. On 05/28/2025, patient was stable and was having normal bowel movements. Due to the patient's stable state the decision was made to discharge the patient on pain medication and advised to follow up with her primary care physician within5 days. Patient was also advised to follow up with her OBGYN for evaluation of her right ovarian cyst. [employer]er(s): CONSULTATION REPORT Name: SHUN LARA Acct: [id number] MR: [id number] : 2000 Admit Date: 05/26/25 SERGIO LANDAVERDE Jr., KIM, [place] [address] [address] CONSULT NOTE: Consulting physician:Dr Mccormack Consulting service: General surgery Reason for consultation: Acute appendicitis History of present illness: This is a 25-year-old female with no significant medical history that has been consulted to surgery after presenting to the hospital with concerns of abdominal discomfort. Initially patient thought it was potentially menstrual cramps but due to worsening symptoms patient presented to the hospital for further evaluation. Upon admission imaging performed concerning for potential appendicitis with in her colitis and right ovarian cyst measuring 4 x 4 x 3.5 cm. Patient also with concerns of cystitis noted. Patient with a elevated white count. Patient currently on IV fluids and IV antibiotics. On physical e xam patient with rebound tenderness and right lower quadrant discomfort. Patient currently NPO in preparation for possible surgery Medical history: Surgical history: Gastric sleeve in December of 2024 Review of systems: General: No Fever, No Chills, No Night Sweats, No Fatigue, No Malaise, No Appetite, No Other HEENT: No Head Aches, No Visual Changes, No Eye Pain, No Ear Pain, No Dysphasia, No Sinus Congestion, No Post Nasal Drip, No Sore Throat, No Other Pulmonary: No Dyspnea, No Cough, No Pleuritic Chest Pain, No Other Cardiovascular: No: Chest Pain, Palpitations, Orthopnea, Paroxysmal No Dyspnea, Edema, Lt Headedness, Other Gastrointestinal: No: Nausea, Vomiting, Diarrhea, Constipation, Melena, Hematochezia, Other Genitourinary: No Dysuria, No Frequency, No Incontinence, No Hematuria, No Retention, No Other Musculoskeletal: No: other, neck pain, shoulder pain, arm pain, back pain, hand pain, leg pain, foot pain Skin: No Urticaria, No Rash, No Other Neurological: No: Weakness, Numbness, Incoordination, Change in speech, Confusion, Seizures, Other Physical exam: General: Awake alert and oriented Heart: Regular rate and rhythm} Lungs: [Clear to auscultation no distress Abdomen: Right lower quadrant tenderness with rebound tenderness Assessment: This is a 25-year-old female with concerns acute appendicitis with a ovarian cysts and mild in her colitis and cystitis Plan: At this point in time patient will be scheduled for appendectomy to be performed by Dr. Lanier Patient to remain NPO Patient to continue with the IV fluids and IV antibiotics Patient has a forward with surgical procedure risks and benefits and agrees with surgical intervention at this time Dr. Lanier has been updated on patient's status SERGIO LANDAVERDE Jr. May 26, 2025 10:47 Electronically Signed by: KIM ALBRECHT Jr., PA05/26/25 1047 Electronically Co-Signed by: Procedure(s): CONSULTATION REPORT Name: SHUN LARA Acct: [id number] MR: [id number] : 2000 Admit Date: 05/26/25 SERGIO LANDAVERDE Jr., KIM, K[place] [id number] [place] [address] CONSULT NOTE: Consulting physician:Dr Mccormack Consulting service: General surgery Reason for consultation: Acute appendicitis History of present illness: This is a 25-year-old female with no significant medical history that has been consulted to surgery after presenting to the hospital with concerns of abdominal discomfort. Initially patient thought it was potentially menstrual cramps but due to worsening symptoms patient presented to the hospital for further evaluation. Upon admission imaging performed concerning for potential appendicitis with in her colitis and right ovarian cyst measuring 4 x 4 x 3.5 cm. Patient also with concerns of cystitis noted. Patient with a elevated white count. Patient currently on IV fluids and IV antibiotics. On physical exam patient with rebound tenderness and right lower quadrant discomfort. Patient currently NPO in preparation for possible surgery Medical history: Surgical history: Gastric sleeve in December of 2024 Review of systems: General: No Fever, No Chills, No Night Sweats, No Fatigue, No Malaise, No Appetite, No Other HEENT: No Head Aches, No Visual Changes, No Eye Pain, No Ear Pain, No Dysphasia, No Sinus Congestion, No Post Nasal Drip, No Sore Throat, No Other Pulmonary: No Dyspnea, No Cough, No Pleuritic Chest Pain, No Other Cardiovascular: No: Chest Pain, Palpitations, Orthopnea, Paroxysmal No Dyspnea, Edema, Lt Headedness, Other Gastrointestinal: No: Nausea, Vomiting, Diarrhea, Constipation, Melena, Hematochezia, Other Genitourinary: No Dysuria, No Frequency, No Incontinence, No Hematuria, No Retention, No Other Musculoskeletal: No: other, neck pain, shoulder pain, arm pain, back pain, hand pain, leg pain, foot pain Skin: No Urticaria, No Rash, No Other Neurological: No: Weakness, Numbness, Incoordination, Change in speech, Confusion, Seizures, Other Physical exam: General: Awake alert and oriented Heart: Regular rate and rhythm} Lungs: [Clear to auscultation no distress Abdomen: Right lower quadrant tenderness with rebound tenderness Assessment: This is a 25-year-old female with concerns acute appendicitis with a ovarian cysts and mild in her colitis and cystitis Plan: At this point in time patient will be scheduled for appendectomy to be performed by Dr. Lanier Patient to remain NPO Patient to continue with the IV fluids and IV antibiotics Patient has a forward with surgical procedure risks and benefits and agrees with surgical intervention at this time Dr. Lanier has been updated on patient's status SERGIO LANDAVERDE Jr. May 26, 2025 10:47 Electronically Signed by: KIM ALBRECHT Jr., PA05/26/25 1049 Electronically Co-Signed by: [facility] [address] [place] [id number] IMAGING REPORT Signed PATIENT: SHUN LARA MR#: [id number] : 2000 SEX: F AGE: 25 LOCATION: [facility] ORDER 3 STATUS: ADM IN REPORT#: [id number] SERVICE REASON: Baseline ORDERING PHYSICIAN: DG MAGAÑA MD PROCEDURE: CXR1VW - CHEST 1VW EXAM: CR Chest, 1 View. CLINICAL HISTORY: Baseline COMPARISON: None provided. FINDINGS: LUNGS: The lungs show no infiltrate or other acute finding. PLEURAL SPACES: No pleural effusion or pneumothorax. MEDIASTINUM: The cardiomediastinal silhouette is within normal limits. BONES: No acute osseous abnormality. IMPRESSION: No acute cardiopulmonary pathology is evident. /[place] DICTATED BY: DERICK LEES Jr., MD DATE: 05/26/252037 ELECTRONICALLY SIGNED BY: DERICK LEES Jr., MD DATE: 05/26/252037 [facility] [address] [place] [id number] IMAGING REPORT Signed PATIENT: SHUN LARA MR#: [id number] : 2000 SEX: F AGE: 25 LOCATION: [facility] ORDER 3 STATUS: ADM IN REPORT#: [id number] SERVICE REASON: Baseline ORDERING PHYSICIAN: DG MAGAÑA MD PROCEDURE: CXR1VW - CHEST 1VW EXAM: CR Chest, 1 View. CLINICAL HISTORY: Baseline COMPARISON: None provided. FINDINGS: LUNGS: The lungs show no infiltrate or other acute finding. PLEURAL SPACES: No pleural effusion or pneumothorax. MEDIASTINUM: The cardiomediastinal silhouette is within normal limits. BONES: No acute osseous abnormality. IMPRESSION: No acute cardiopulmonary pathology is evident. /[place] DICTATED BY: DERICK LEES Jr., MD DATE: 05/26/252037 ELECTRONICALLY SIGNED BY: DERICK LEES Jr., MD DATE: 05/26/252037 Assessment/Plan: ASSESSMENT: 1. Acute Appendicitis s/p appendectomy 05/26/2025 2. Enterocolitis 3. Acute mild Cystitis 4.Right Simple Ovarian Cyst- Measuring 3.5 x4.0 x4.0 cm ovarian cyst 5. Sepsis 6. Possible SBO Discharge Instructions: You were admitted with acute appendicitis and underwent surgery to remove her appendix (appendectomy). Your recovery is going well and you are being discharged home. Take pain medications as prescribed, and complete your antibiotics if given. Keep your incision clean and dry; Wash gently with mild soap and water, then pat dry. Avoid heavy lifting or strenuous activity until cleared by your surgeon. Watch for signs of infection such as redness, swelling, drainage, fever, or worsening pain. Seek medical attention right away if these occur or if you develop severe abdominal pain, persistent vomiting, or difficulty breathing. Follow up with your surgeon as scheduled for your postoperative check. Follow up with your primary care physician within 5 days. Follow up with your OBGYN for evaluation of your right ovarian cyst. Home Medications: Reported Medications Atomoxetine HCl (Atomoxetine HCl) 10 Mg Capsule, 1 CAP PO DAILY for 30 Days, #30 CAP 0 Refills 05/26/25 [Vit D] No Conflict Check, 1.25 MG PO WEEKLY 12/01/24 Folic Acid (Folvite) 1 Mg Tab, 1 MG PO DAILY, TAB 12/01/24 Discontinued Reported Medications Norethindrone (Helen) 0.35 Mg Tablet, 0.35 MG PO DAILY, TAB 12/01/24 Continued Medications: Atomoxetine HCl (Atomoxetine HCl) 10 Mg Capsule 1 CAP PO DAILY for 30 Days, #30 CAP 0 Refills Folic Acid (Folvite) 1 Mg Tab 1 MG PO DAILY, TAB [Vit D] () 1.25 MG PO WEEKLY Time spent arranging discharge: 1-30 minutes ATTESTATION BY PHYSICIAN I have seen and examined the patient. I reviewed the documentation, medical decision making, and treatment plan as noted by the resident provider above. I agree with the findings and plan of care. Akhil Mccormack MD, HEMA MD May 28, 2025 15:14 DHRUV QUIGLEY MD May 28, 2025 16:03
[2025-05-28 15:52] VITALS: BP 101/62; PULSE 74; RESP 19; TEMP 98.2
--- NOTE | 2025-05-28 16:40 | NUR ---
DC HM PER MD ORDERS DC INSTRUCTION EDUCATED VERBAL UNDERSTANDING FU APPT. GIVEN TAKEN DOWNSTAIRS VIA WC ESCORTED VIA STAff stable cond denies pain
== END 2025-05-28 16:45 | disposition home or self-care (01) ==
LOC: EDH 02:24 → INTOOBSV 02:25 → EDHIP 02:25 → 3DH 15:30
PROVIDERS: ADMIT Internal Medicine; ATTEND Internal Medicine
DX: K35.80 Unspecified acute appendicitis (principal); K52.9 Noninfective gastroenteritis and colitis, unspecified; N30.00 Acute cystitis without hematuria; N83.291 Other ovarian cyst, right side; A41.9 Sepsis, unspecified organism; G43.909 Migraine, unspecified, not intractable, without status migrainosus; Z79.899 Other long term (current) drug therapy; Z98.84 Bariatric surgery status
CPT/HCPCS: 44970; 96361 ×3; 96365; 96366 ×3; 96375 ×2; 96367; 99284; 83036; 84443; 80076; 83735 ×3; 84100; 80048 ×3; 83690; 85025 ×3; 85610; 85730; 85651; 87040 ×2; 87086; 83605; 82010; 86140; 81001; 81025; 36415 ×3; 88304; 71045; 74178; 96376 ×3; 93005; 84145; 83540; 83550; A4663; J7030; J7120 ×3; J3490 ×11; J3010 ×2; J1100; J2270 ×2; J2003; J0696 ×3; J2704; J2405 ×2; J0665; J2470 ×3; J0692; Q9967; C1769 ×3; A4649; A4930; A4223; A4222; A4216; A4600; G0378 ×27; J3475; 96374; 99285